=== PATIENT | male | born 1980 | race Caucasian/White ===

== ENCOUNTER 2024-02-10 13:37 | Outpatient (OUT) | payer SELFPAY | END 2024-02-10 13:38 | disposition home or self-care (01) | LOC: PST 13:39 | PROVIDERS: Family Provider Internal Medicine; PCP Surgery; Visit Provider Surgery | DX: Z01.818 Encounter for other preprocedural examination (principal); Z12.11 Encounter for screening for malignant neoplasm of colon ==

== ENCOUNTER 2024-02-23 06:51 | Day surgery (SDC) | payer OTHER, SELFPAY ==
[2024-02-23 07:10] VITALS: BP 151/83; PULSE 63; TEMP 36.1; O2SAT 98; BMI 39.3
[2024-02-23 07:22] VITALS: BMI 39.3
--- NOTE | 2024-02-23 07:22 | PM.GSPRC ---
Date of procedure: 02/23/24 Indications for Procedure: Screening for cancer Pre-op diagnosis: Screening for cancer Post-op diagnosis: other (Normal colon) Procedure: colonoscopy Anesthesia: MAC Surgeon: Avila Calzada Procedure Summary: PROCEDURE: The patient was taken to the Endoscopy Suite, placed in the left lateral recumbent position, given IV sedation as above. A rectal digital exam was performed. The sphincter tone was found to be normal. No rectal masses were appreciated. Prostate was smooth nonenlarged without nodules. The Olympus video colonoscope was advanced under direct visualization to the rectum, sigmoid colon, descending colon, transverse colon and ascending colon to the ileocecal valve. Appendiceal lumen was visualized. Prep was adequate. The underside of the valve was seen. The scope was slowly withdrawn with air being desufflated as it was withdrawn. No gross tumors, polyps or diverticula were seen. The patient tolerated the procedure well and went to the Recovery Area in satisfactory condition. I recommend the patient repeat colonoscopy screening in 10 years unless problems. Estimated blood loss (mL): 0 Complications: No Pathology: none sent Condition: stable Disposition: PACU
[2024-02-23] MEDS: 0.9 % SODIUM CHLORIDE 500 ML 50 ML IV (07:29)
[2024-02-23 08:34] VITALS: BP 114/63; PULSE 66; O2SAT 96
[2024-02-23 08:54] VITALS: BP 133/83; PULSE 49; O2SAT 97
== END 2024-02-23 09:07 | disposition home or self-care (01) ==
PROVIDERS: Family Provider Internal Medicine; Visit Provider Surgery
PROC: (CPT 00811; principal; 2024-02-23 08:00)
DX: Z12.11 Encounter for screening for malignant neoplasm of colon (principal)
CPT/HCPCS: 00811; 45378; J2704